=== PATIENT | female | born 1995 | race Caucasian/White ===

== ENCOUNTER 2024-08-25 05:42 | Emergency (ER) | payer BC ==
[2024-08-25 05:46] VITALS: RESP 16; TEMP 98.3
--- NOTE | 2024-08-25 06:37 | ED ---
Abdominal Pain HPI - General Chief Complaint: Abdominal Pain Stated Complaint: upper abd pain Time Seen by Provider: 08/25/24 05:58 Source: patient, RN notes reviewed Mode of arrival: ambulatory Limitations: no limitations - History of Present Illness Initial Comments: This is a 29-year-old female who presents to the emergency department for abdominal pain. Patient states that she was woken from her sleep by pain in the right upper quadrant. States that this was sharp and cramping in nature. Pain radiated into her back and right shoulder. She took ibuprofen and symptoms have started to subside. Denies any associated nausea or vomiting. Also denies any changes in bowel or bladder habits. She has no history of similar pain in the past. Denies any history of gallstones or kidney stones. MD Complaint: abdominal pain, flank pain - Related Data Previous Rx's Medication Instructions Recorded Ibuprofen [Motrin] 800 mg PO Q8H PRN #30 tab 08/25/24 Ondansetron Odt [Zofran Odt] 4 mg PO Q8HR PRN #20 tab 08/25/24 Allergies Allergy/AdvReac Type Severity Reaction Status Date / Time No Known Allergies Allergy Verified 08/25/24 05:46 Review of Systems ROS Statement: Those systems with pertinent positive or pertinent negative responses have been documented in the HPI. ROS Other: All systems not noted in ROS Statement are negative. Past Medical History Past Medical History: No Reported History History of Any Multi-Drug Resistant Organisms: None Reported Past Surgical History: Appendectomy Past Psychological History: Anxiety Smoking Status: Never smoker Past Alcohol Use History: Occasional Past Drug Use History: None Reported General Exam Limitations: no limitations General appearance: alert, in no apparent distress Head exam: Present: atraumatic, normocephalic, normal inspection Respiratory exam: Present: normal lung sounds bilaterally. Absent: respiratory distress, wheezes, rales, rhonchi, stridor Cardiovascular Exam: Present: regular rate, normal rhythm, normal heart sounds. Absent: systolic murmur, diastolic murmur, rubs, gallop, clicks GI/Abdominal exam: Present: soft, normal bowel sounds. Absent: distended, tenderness, guarding, rebound, rigid Back exam: Absent: CVA tenderness (R), CVA tenderness (L) Neurological exam: Present: alert, oriented X3, CN II-XII intact Psychiatric exam: Present: normal affect, normal mood Skin exam: Present: warm, dry, intact, normal color. Absent: rash Course Vital Signs 08/25/24 05:43 Temperature 98.3 F Pulse Rate 73 Respiratory 16 Rate Blood Pressure 145/109 O2 Sat by Pulse 98 Oximetry Medical Decision Making - Medical Decision Making This is a 29 year old female who presents to the emergency department for abdominal pain. Was pt. sent in by a medical professional or institution? @ -No Did you speak to anyone other than the patient for history? @ -No Did you review nursing and triage notes? @ -Yes, and I agree, it is accurate with regards to the patient's symptoms. Were old charts reviewed? @ -No Differential Diagnosis? @ -Differential Abdominal Pain Women: Appendicitis, Cholecystitis, diverticulosis, ischemic bowel, pancreatitis, hepatitis, UTI, gastroenteritis, AAA, incarcerated hernia, bowel obstruction, constipation, inflammatory bowel, hepatitis, peptic ulcer disease, splenic infarction, perforated viscus, vulvitis, ovarian torsion, PID, kidney stone, placenta abruption, this is not meant to be an all-inclusive list EKG interpreted by me (3pts min.)? @ -Not obtained X-rays interpreted by me (1pt min.)? @ -Not obtained CT interpreted by me (1pt min.)? @ -Not obtained U/S interpreted by me (1pt. min.)? @ -Gallbladder ultrasound obtained. My interpretation identifies no evidence of gallbladder wall thickening. What testing was considered but not performed? (CT, X-rays, U/S, labs)? Why? @ -None What meds were considered but not given? Why? @ -None Did you discuss the management of the patient with other professionals? @ -No Did you reconcile home meds? @ -No Was smoking cessation discussed for >3mins.? @ -No Was critical care preformed (if so, how long)? @ -No Were there social determinants of health that impacted care today? How? (Homelessness, low income, unemployed, alcoholism, drug addiction, transportation, low edu. Level, literacy, decrease access to med. care, prison, rehab)? @ -No Was there de-escalation of care discussed even if they declined? (Discuss DNR or withdrawal of care, Hospice)? @ -No What co-morbidities impacted this encounter? (DM, HTN, Smoking, COPD, CAD, Cancer, CVA, Hep., AIDS, mental health diagnosis, sleep apnea, morbid obesity)? @ -None Was patient admitted / discharged? @ -Discharged. Lab work relatively unremarkable. Urinalysis negative for signs of infection. Gallbladder ultrasound obtained revealing cholelithiasis without signs of acute cholecystitis. Patient remained asymptomatic while in the emergency department. Advised that symptoms are likely related to biliary colic. Advised she follow a bland and low-fat diet for the meantime to reduce the risk of symptom recurrence. Information for follow-up with general surgery provided. She is advised to contact them for follow-up appointment for further evaluation. Prescription for ibuprofen and Zofran provided in the event symptoms return. Patient discharged home in stable condition. Case discussed with ED attending Dr. Adkins. Return precautions reviewed in depth, the patient is instructed to return to the emergency department with any new, worsening, or concerning symptoms. Patient verbalized understanding. Undiagnosed new problem with uncertain prognosis? @ -None Drug Therapy requiring intensive monitoring for toxicity (Heparin, Nitro, Insulin, Cardizem)? @ -None Were any procedures done? @ -None Diagnosis/symptom? @ -Biliary colic, cholelithiasis Acute, or Chronic, or Acute on Chronic? @ -Acute Uncomplicated (without systemic symptoms) or Complicated (systemic symptoms)? @ -Uncomplicated Side effects of treatment? @ -None Exacerbation, Progression, or Severe Exacerbation] @ -Not applicable Poses a threat to life or bodily function? @ -No - Lab Data Result diagrams: 08/25/24 07:58 08/25/24 06:08 Lab Results 08/25/24 08/25/24 08/25/24 Range/Units 06:08 06:08 06:08 WBC (3.8-10.6) k/uL RBC (3.80-5.40) m/uL Hgb (11.4-16.0) gm/dL Hct (34.0-46.0) % MCV (80.0-100.0) fL MCH (25.0-35.0) pg MCHC (31.0-37.0) g/dL RDW (11.5-15.5) % Plt Count (150-450) k/uL MPV Neutrophils % % Lymphocytes % % Monocytes % % Eosinophils % % Basophils % % Neutrophils # (1.3-7.7) k/uL Lymphocytes # (1.0-4.8) k/uL Monocytes # (0-1.0) k/uL Eosinophils # (0-0.7) k/uL Basophils # (0-0.2) k/uL Sodium 139 (137-145) mmol/L Potassium 4.3 (3.5-5.1) mmol/L Chloride 107 (98-107) mmol/L Carbon Dioxide 21 L (22-30) mmol/L Anion Gap 11 mmol/L BUN 15 (7-17) mg/dL Creatinine 0.54 (0.52-1.04) mg/dL Est GFR (CKD-EPI)AfAm >90 (>60 ml/min/1.73 sqM) Est GFR (CKD-EPI)NonAf >90 (>60 ml/min/1.73 sqM) Glucose 109 H (74-99) mg/dL Plasma Lactic Acid Rob 1.7 (0.7-2.0) mmol/L Calcium 9.1 (8.4-10.2) mg/dL Total Bilirubin 0.4 (0.2-1.3) mg/dL AST 25 (14-36) U/L ALT 29 (4-34) U/L Alkaline Phosphatase 103 (38-126) U/L Total Protein 7.1 (6.3-8.2) g/dL Albumin 4.4 (3.5-5.0) g/dL Amylase 52 (30-110) U/L Lipase 114 (23-300) U/L HCG, Qual Not Detected Urine Color Yellow Urine Appearance Cloudy H (Clear) Urine pH 5.5 (5.0-8.0) Ur Specific [place] 1.035 (1.001-1.035) Urine Protein Trace H (Negative) Urine Glucose (UA) Negative (Negative) Urine Ketones Negative (Negative) Urine Blood Moderate H (Negative) Urine Nitrite Negative (Negative) Urine Bilirubin Negative (Negative) Urine Urobilinogen 2.0 (<2.0) mg/dL Ur Leukocyte Esterase Negative (Negative) Urine RBC 1 (0-5) /hpf Urine WBC 7 H (0-5) /hpf Ur Squamous Epith Cells 8 H (0-4) /hpf Amorphous Sediment Rare H (None) /hpf Urine Mucus Many H (None) /hpf Urine HCG, Qual (Not Detectd) 08/25/24 08/25/24 Range/Units 06:08 07:58 WBC 7.3 (3.8-10.6) k/uL RBC 4.35 (3.80-5.40) m/uL Hgb 13.0 (11.4-16.0) gm/dL Hct 38.5 (34.0-46.0) % MCV 88.7 (80.0-100.0) fL MCH 29.9 (25.0-35.0) pg MCHC 33.8 (31.0-37.0) g/dL RDW 12.6 (11.5-15.5) % Plt Count 286 (150-450) k/uL MPV 7.8 Neutrophils % 60 % Lymphocytes % 30 % Monocytes % 5 % Eosinophils % 2 % Basophils % 1 % Neutrophils # 4.4 (1.3-7.7) k/uL Lymphocytes # 2.2 (1.0-4.8) k/uL Monocytes # 0.4 (0-1.0) k/uL Eosinophils # 0.2 (0-0.7) k/uL Basophils # 0.1 (0-0.2) k/uL Sodium (137-145) mmol/L Potassium (3.5-5.1) mmol/L Chloride (98-107) mmol/L Carbon Dioxide (22-30) mmol/L Anion Gap mmol/L BUN (7-17) mg/dL Creatinine (0.52-1.04) mg/dL Est GFR (CKD-EPI)AfAm (>60 ml/min/1.73 sqM) Est GFR (CKD-EPI)NonAf (>60 ml/min/1.73 sqM) Glucose (74-99) mg/dL Plasma Lactic Acid Rob (0.7-2.0) mmol/L Calcium (8.4-10.2) mg/dL Total Bilirubin (0.2-1.3) mg/dL AST (14-36) U/L ALT (4-34) U/L Alkaline Phosphatase (38-126) U/L Total Protein (6.3-8.2) g/dL Albumin (3.5-5.0) g/dL Amylase (30-110) U/L Lipase (23-300) U/L HCG, Qual Urine Color Urine Appearance (Clear) Urine pH (5.0-8.0) Ur Specific [place] (1.001-1.035) Urine Protein (Negative) Urine Glucose (UA) (Negative) Urine Ketones (Negative) Urine Blood (Negative) Urine Nitrite (Negative) Urine Bilirubin (Negative) Urine Urobilinogen (<2.0) mg/dL Ur Leukocyte Esterase (Negative) Urine RBC (0-5) /hpf Urine WBC (0-5) /hpf Ur Squamous Epith Cells (0-4) /hpf Amorphous Sediment (None) /hpf Urine Mucus (None) /hpf Urine HCG, Qual Not Detected (Not Detectd) - Radiology Data Radiology results: report reviewed, image reviewed Disposition Clinical Impression: Biliary colic, Cholelithiasis Disposition: HOME SELF-CARE Instructions (If sedation given, give patient instructions): Biliary Colic (ED), Gallstones (ED) Additional Instructions: Return to the emergency department with any new, worsening, or concerning symptoms. If the pain returns you can try taking ibuprofen or Tylenol to see if that offers any relief. Follow a bland and low-fat diet for the meantime to reduce the risk of symptom recurrence. You can contact either of the general surgery offices listed below or the surgeon you saw in [place] for a follow-up appointment. Let them know that you were seen in the emergency department for abdominal pain and found to have gallstones, and they will schedule you for an appointment. Prescriptions: Ibuprofen [Motrin] 800 mg PO Q8H PRN #30 tab PRN Reason: Pain Ondansetron Odt [Zofran Odt] 4 mg PO Q8HR PRN #20 tab PRN Reason: Nausea And Vomiting Is patient prescribed a controlled substance at d/c from ED?: No Referrals: Randall Tran DO [Primary Care Provider] - 1-2 days Barrington Yao DO [Doctor of Osteopathic Medicine] - 1-2 days Monica Scott MD [STAFF PHYSICIAN] - 1-2 days Time of Disposition: 08:53
[2024-08-25 07:04] LABS: ALT 29 U/L (4-34); AST 25 U/L (14-36); African American GFR (CKD) >90 (>60 ml/min/1.73 sqM); Albumin 4.4 g/dL (3.5-5.0); Alkaline Phosphatase 103 U/L (38-126); Amylase 52 U/L (30-110); Anion Gap 11 mmol/L; Blood Urea Nitrogen 15 mg/dL (7-17); Calcium 9.1 mg/dL (8.4-10.2); Carbon Dioxide 21 mmol/L (22-30); Chloride 107 mmol/L (98-107); Glucose 109 mg/dL (74-99); Lipase 114 U/L (23-300); Non-African American GFR(CKD) >90 (>60 ml/min/1.73 sqM); Potassium 4.3 mmol/L (3.5-5.1); Sodium 139 mmol/L (137-145); Total Bilirubin 0.4 mg/dL (0.2-1.3); Total Protein 7.1 g/dL (6.3-8.2)
[2024-08-25 07:06] LABS: Amorphous Sediment,Urine Rare /hpf; Appearance,Urine Cloudy (Clear); Bilirubin,Urine Negative (Negative); Blood,Urine Moderate (Negative); Color,Urine Yellow; Glucose,Urine (UA) Negative (Negative); Ketones,Urine Negative (Negative); Leukocyte Esterase,Urine Negative (Negative); Mucus,Urine Many /hpf; Nitrite,Urine Negative (Negative); PH, Urine 5.5 (5.0-8.0); Protein,Urine Trace (Negative); RBC,Urine 1 /hpf (0-5); Specific Gravity,Urine 1.035 (1.001-1.035); Squamous Epithelial Cell,Urine 8 /hpf (0-4); WBC,Urine 7 /hpf (0-5)
[2024-08-25 07:31] LABS: HCG,Qualitative Serum Not Detected
--- NOTE | 2024-08-25 07:45 | US ---
EXAMINATION TYPE: US gallbladder DATE OF EXAM: 08/25/2024 COMPARISON: CT 2012 CLINICAL INDICATION: Female, 29 years old with history of RUQ pain; RUQ pain. Hx appendectomy TECHNIQUE: Grayscale and color Doppler imaging of the right upper quadrant. FINDINGS: EXAM MEASUREMENTS: Liver Length: 13.9 cm Gallbladder Wall: 0.21 cm CBD: 0.46 cm, color Doppler imaging was utilized to isolate the common bile duct for measurement. Right Kidney: 11.9 x 6.7 x 5.4 cm [employer] NOTES: Exam is limited due to gas Pancreas: Not well visualized Liver: Appears homogeneous in echotexture Gallbladder: *2 hyperechoic foci with posterior shadowing seen within the neck: #1= 1.8 x 1.1 x 0.8, #2 = 0.6 x 0.5 x 0.4 cm. Evidence for sonographic Clemons's sign: No CBD: Portions seen appear wnl Right Kidney: No hydronephrosis or masses seen, slightly limited visibility of lower pole. IMPRESSION: Gallstones without ultrasound evidence for acute cholecystitis. [facility], , 08/25/2024 7:42 AM
[2024-08-25 08:51] LABS: Basophils # (A) 0.1 k/uL (0-0.2); Basophils % (A) 1 %; Eosinophils # (A) 0.2 k/uL (0-0.7); Eosinophils % (A) 2 %; HCT 38.5 % (34.0-46.0); Lymphocytes # (A) 2.2 k/uL (1.0-4.8); Lymphocytes % (A) 30 %; MCH 29.9 pg (25.0-35.0); MCHC 33.8 g/dL (31.0-37.0); MCV 88.7 fL (80.0-100.0); Mean Platelet Volume 7.8; Monocytes # (A) 0.4 k/uL (0-1.0); Monocytes % (A) 5 %; Neutrophils # (A) 4.4 k/uL (1.3-7.7); Neutrophils % (A) 60 %; Platelet Count 286 k/uL (150-450); RBC 4.35 m/uL (3.80-5.40); RDW 12.6 % (11.5-15.5); WBC 7.3 k/uL (3.8-10.6)
[2024-08-25 09:56] VITALS: BP 127/92; PULSE 76
== END 2024-08-25 09:59 | disposition home or self-care (01) ==
LOC: EC 05:42
DX: K80.70 Calculus of gallbladder and bile duct without cholecystitis without obstruction (principal)
CPT/HCPCS: 36415; 76705; 80053; 81001; 81025; 82150; 83605; 83690; 84703; 85025; 99284